=== PATIENT | male | born 1955 | race Hispanic/Latino ===

== ENCOUNTER 2019-08-10 15:27 | Emergency (ER) | payer MEDICARE, OTHER ==
[2019-08-10] MEDS ORDERED: ASPIRIN 325 MG TABLET ONE (15:52)
[2019-08-10] MEDS ORDERED: ACETAMINOPHEN 325 MG TAB ONE (15:52)
[2019-08-10 16:40] LABS: BASOPHILS % (AUTO) 0.1 % (0.0-5.0); HEMATOCRIT 42.9 % (42-54); LYMPHOCYTES % (AUTO) 7.8 % (21.0-51.0); MEAN CORPUSCULAR HEMOGLOBIN 31.3 pg (27.0-33.0); MEAN CORPUSCULAR HGB CONC 34.5 g/dL (32.0-36.0); MEAN CORPUSCULAR VOLUME 90.7 fL (79-99); NEUTROPHILS % (AUTO) 87.8 % (40.0-77.0); PLATELET COUNT (AUTO) 228 K/uL (130-400); RED BLOOD CELL COUNT(AUTO) 4.73 MIL/uL (4.50-6.20); RED CELL DISTRIBUTION WIDTH 12.2 % (11.0-15.5); WHITE BLOOD COUNT (AUTO) 12.9 K/uL (4.8-10.8)
[2019-08-10 16:43] LABS: INR 1.02 (0.85-1.15); PARTIAL THROMBOPLASTIN TIME 27.5 SEC (26.3-35.5); PROTHROMBIN TIME 10.7 SEC (9.6-11.6)
[2019-08-10 16:59] LABS: CREATININE 1.2 mg/dL (0.5-1.5); POTASSIUM 3.7 mmol/L (3.5-5.1)
[2019-08-10 17:06] LABS: ALBUMIN 3.9 g/dL (3.5-5.0); BILIRUBIN,TOTAL 0.4 mg/dL (0.2-1.0); TOTAL PROTEIN, SERUM 7.5 g/dL (6.0-8.3)
[2019-08-10 17:24] LABS: B-TYPE NATRIURETIC PEPTIDE 14 pg/mL (0-100)
[2019-08-10] MEDS ORDERED: SODIUM CHLORIDE 0.9% 1000ML 1,000 ML IV ONE (18:05)
== END 2019-08-10 20:55 | disposition home or self-care (01) ==
LOC: EDH 15:27
DX: E86.0 Dehydration (principal); R06.00 Dyspnea, unspecified; I10 Essential (primary) hypertension; Z95.1 Presence of aortocoronary bypass graft; Z98.890 Other specified postprocedural states
CPT/HCPCS: 36415; 71046; 80053; 82550; 83880; 84484 ×2; 85025; 85610; 85730; 93005 ×2; 99285; J7030; 96360

== ENCOUNTER 2020-10-11 22:09 | Emergency (ER) | payer OTHER ==
[2020-10-11 22:54] LABS: BASOPHILS % (AUTO) 0.5 % (0.0-5.0); EOSINOPHILS % (AUTO) 4.8 % (0.0-8.0); LYMPHOCYTES % (AUTO) 20.4 % (21.0-51.0); MEAN CORPUSCULAR HEMOGLOBIN 32.1 pg (27.0-33.0); MEAN CORPUSCULAR HGB CONC 35.6 g/dL (32.0-36.0); MEAN CORPUSCULAR VOLUME 90.1 fL (79-99); MONOCYTES % (AUTO) 6.8 % (3.0-13.0); NEUTROPHILS % (AUTO) 67.1 % (40.0-77.0); PLATELET COUNT (AUTO) 141 K/uL (130-400); RED BLOOD CELL COUNT(AUTO) 4.55 MIL/uL (4.50-6.20); RED CELL DISTRIBUTION WIDTH 12.8 % (11.0-15.5); WHITE BLOOD COUNT (AUTO) 5.6 K/uL (4.8-10.8)
[2020-10-11 23:03] LABS: CREATININE 1.1 mg/dL (0.5-1.5); POTASSIUM 5.1 mmol/L (3.5-5.1)
[2020-10-11 23:07] LABS: INR 0.99 (0.85-1.15); PROTHROMBIN TIME 10.8 SEC (9.6-11.6)
[2020-10-11 23:09] LABS: PARTIAL THROMBOPLASTIN TIME 25.9 SEC (26.3-35.5)
[2020-10-11 23:15] LABS: ALBUMIN 3.6 g/dL (3.5-5.0); BILIRUBIN,TOTAL 0.4 mg/dL (0.2-1.0); TOTAL PROTEIN, SERUM 6.6 g/dL (6.0-8.3)
[2020-10-11] MEDS ORDERED: KETOROLAC TROMETHAMINE 15MG/ML ONE (23:34)
[2020-10-11] MEDS ORDERED: LIDOCAINE 5% TOPICAL PATCH TP ONE (23:34)
[2020-10-11] MEDS ORDERED: ORPHENADRINE CITRATE 30 MG/ML ML ONE (23:34)
== END 2020-10-12 00:50 | disposition home or self-care (01) ==
LOC: EDH 22:09
DX: R07.89 Other chest pain (principal); T14.8XXA Other injury of unspecified body region, initial encounter; I10 Essential (primary) hypertension; M10.9 Gout, unspecified; Z88.8 Allergy status to other drugs, medicaments and biological substances; X58.XXXA Exposure to other specified factors, initial encounter; Y93.89 Activity, other specified; Y92.89 Other specified places as the place of occurrence of the external cause; Y99.8 Other external cause status
CPT/HCPCS: 36415; 71045; 80053; 83690; 84484; 85025; 85610; 85730; 93005; 96374; 96375; 99285; J1885; J2360

== ENCOUNTER 2021-12-24 03:27 | Emergency (ER) | payer OTHER ==
[~2021-12-24] VITALS: Ht 172.7 cm; Wt 106.1 kg
[2021-12-24 04:27] LABS: BASOPHILS % (AUTO) 0.2 % (0.0-5.0); EOSINOPHILS % (AUTO) 3.7 % (0.0-8.0); LYMPHOCYTES % (AUTO) 23.6 % (21.0-51.0); MEAN CORPUSCULAR HEMOGLOBIN 31.8 pg (27.0-33.0); MEAN CORPUSCULAR VOLUME 88.2 fL (79-99); MONOCYTES % (AUTO) 6.9 % (3.0-13.0); NEUTROPHILS % (AUTO) 65.4 % (40.0-77.0); PLATELET COUNT (AUTO) 164 K/uL (130-400); RED CELL DISTRIBUTION WIDTH 12.4 % (11.0-15.5); WHITE BLOOD COUNT (AUTO) 4.9 K/uL (4.8-10.8)
[2021-12-24] MEDS ORDERED: PANT40TA PO (05:02)
[2021-12-24 05:19] VITALS: BP 148/58
== END 2021-12-24 05:30 | disposition home or self-care (01) ==
LOC: EDH 03:27
DX: K21.00 Gastro-esophageal reflux disease with esophagitis, without bleeding (principal); I10 Essential (primary) hypertension
CPT/HCPCS: 36415; 71045; 80048; 84484; 85025; 93005